=== PATIENT | female | born 1985 | race Caucasian/White ===

== ENCOUNTER 2022-09-13 03:14 | Emergency (ER) | payer OTHER, SELFPAY ==
[2022-09-13 03:17] VITALS: BP 124/78; PULSE 72; RESP 20; TEMP 36.8; O2SAT 98
[2022-09-13 03:28] VITALS: BP 130/85; PULSE 73; RESP 18; O2SAT 97; O2SAT 98
[2022-09-13] MEDS: TETANUS,DIPHTHERIA,AC PERTUSSIS ADULT (0.5 ML) BOOSTRIX IM (03:58)
--- NOTE | 2022-09-13 04:11 | ED.GENADULT ---
HPI - General Adult General Chief complaint: Wound/Laceration Stated complaint: lac Time Seen by Provider: 09/13/22 03:45 History of Present Illness HPI narrative: This is a 36-year-old female presenting ED with a scratch on her leg. Yesterday she was working around the house when she scratched her leg on a lokesh nail. She would like a tetanus booster. 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 She had completed the initial 3 courses when she was a child Related Data Allergies Allergy/AdvReac Type Severity Reaction Status Date / Time No Known Allergies Allergy Verified 09/13/22 03:31 [facility] Past Medical History Medical History Melanoma Exam Narrative: APPEARANCE: No apparent distress. Head: atraumatic. EYES: EOMI, NOSE: Atraumatic NECK: Trachea midline RESPIRATORY: No increased rate of breathing CARDIOVASCULAR: RRR, ABDOMINAL: Non-distended MUSCULOSKELETAl: No obvious deformities NEURO: Alert. Moving 4/4 extremities SKIN:: Superficial scratch over the patient's calf, mild erythema but no discharge, fluctuance or evidence of infection. PSYCHIATRIC: Normal affect Course Vital Signs Vital signs: Vital Signs Temperature 98.2 F 09/13/22 03:17 Pulse Rate 72 09/13/22 03:17 Respiratory Rate 20 09/13/22 03:17 Blood Pressure 124/78 09/13/22 03:17 Pulse Oximetry 98 09/13/22 03:17 Oxygen Delivery Room Air 09/13/22 03:17 Temperature 98.2 F 09/13/22 03:17 Pulse Rate 73 09/13/22 03:28 Respiratory Rate 18 09/13/22 03:28 Blood Pressure 130/85 09/13/22 03:28 Pulse Oximetry 97 09/13/22 03:28 Oxygen Delivery Room Air 09/13/22 03:28 Medical Decision Making MDM Narrative Medical decision making narrative: -Presentation: 36-year-old female presenting with a scratch on her leg. She is requesting a tetanus shot. 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 She will be given a prescription for Keflex. If she feels that she is developing an infection she should fill prescription and start taking medication. Patient is comfortable this plan. -RX Keflex 500 mg b.i.d. x7 days Vital Signs Vital Signs: Vital Signs Temperature 98.2 F 09/13/22 03:17 Pulse Rate 72 09/13/22 03:17 Respiratory Rate 20 09/13/22 03:17 Blood Pressure 124/78 09/13/22 03:17 Pulse Oximetry 98 09/13/22 03:17 Oxygen Delivery Room Air 09/13/22 03:17 Temperature 98.2 F 09/13/22 03:17 Pulse Rate 73 09/13/22 03:28 Respiratory Rate 18 09/13/22 03:28 Blood Pressure 130/85 09/13/22 03:28 Pulse Oximetry 97 09/13/22 03:28 Oxygen Delivery Room Air 09/13/22 03:28 Discharge Plan Discharge Clinical Impression: Abrasion Patient Disposition: Home, Self-Care Condition: Stable Instructions: Antibiotic Form, Abrasion (ED) Additional Instructions: if you believe you are developing signs of infection please complete a course of Keflex and follow-up with the primary care physician. Prescriptions: New cephalexin 500 mg capsule 500 mg PO Q12H Qty: 14 0RF Follow-up/Referrals: PHYSICIAN,RIDES ATTENDANT [Primary Care Provider] -
[2022-09-13 04:24] VITALS: BP 124/92; PULSE 72; RESP 18; O2SAT 100
== END 2022-09-13 04:26 | disposition home or self-care (01) ==
PROVIDERS: Emergency Provider Emergency Medicine
DX: S80.812A Abrasion, left lower leg, initial encounter (principal); Z23 Encounter for immunization; W45.0XXA Nail entering through skin, initial encounter
CPT/HCPCS: 90471; 90715; 99283

== ENCOUNTER 2022-11-06 16:12 | Emergency (ER) | payer OTHER, SELFPAY ==
[2022-11-06] VITALS (17 sets, daily range): BP systolic 129–134; BP diastolic 83–97; PULSE 69–88; RESP 10–25; TEMP 36.8; O2SAT 99–100
--- NOTE | 2022-11-06 16:17 | ECG_ITS ---
Measurements Intervals [place] Rate: 74 P: 13 VT: 135 QRS: 68 QRSD: 86 T: 48 QT: 367 QTc: 408 Interpretive Statements SINUS RHYTHM NO PREVIOUS ECG AVAILABLE FOR COMPARISON Electronically Signed On 11-07-2022 13:06:27 CDT by Subhash Back M.D.
--- NOTE | 2022-11-06 16:29 | PC.NURSE ---
Pt states while taking a nap today around 0800 was awoken by her heart pounding fast. States she went and had IV rehydration and states she started to feel better. States she took another nap and was awoken by her heart again pounding around 1400. States she felt dizzy and lightheaded. States she did have flank pain earlier on the left side but has since resolved. States she has only 1 void today and it was shortly after the IV rehydration and has not had any output since.
--- NOTE | 2022-11-06 16:45 | ED.ARRPALP ---
HPI - Arrhythmia/Palpitations General Chief Complaint: Arrhythmia/Palpitations Stated Complaint: lightheaded, heart palp Time Seen by Provider: 11/06/22 16:24 History of Present Illness HPI narrative: 29-year-old female presents to the emergency department for evaluation of intermittent heart palpitations. Patient states this is happened multiple times recently. Patient states that she had this happen on Sunday night and it lasted a few hours, it happened while she was sleeping and it woke her up. Patient states it happened again today and patient presented to the infusion center to get some IV fluids. Patient states that she has not drank very much fluid since then and has only urinated a small amount. Patient denies any associated chest pain or shortness of breath but does feel anxious being here in the emergency department. Patient denies any prior history of diagnosed cardiac arrhythmias but states her mother does have history of A-fib. Patient states her heart rate felt fast but she did not feel that it was irregular. Patient states she does drink alcohol daily. Related Data Allergies Allergy/AdvReac Type Severity Reaction Status Date / Time No Known Allergies Allergy Verified 11/06/22 16:26 Review of Systems Review of Systems: All systems reviewed & are unremarkable except as noted in HPI and below PMFSH Past Medical History Medical History Melanoma Exam Narrative: APPEARANCE: Well appearing, no pain, no distress, well-nourished. HEAD: normocephalic, atraumatic. EYES: PERRLA/EOMI, conjunctivae clear. NOSE: Normal no drainage EARS:TMS clear with good light reflex. THROAT: Pharynx clear, no exudate. NECK: Supple. No adenopathy, no masses. RESPIRATORY: Airway patent, respirations nonlabored. Clear to auscultation bilaterally, no rales, rhonchi, wheezing. CARDIOVASCULAR: Regular rate and rhythm without murmurs rubs or gallops. ABDOMINAL: Soft, nontender, nondistended, normal bowel sounds MUSCULOSKELETAL: Moves all extremities. Strength/ROM intact, No edema, No calf tenderness. NEURO: Alert. Cranial nerves II through XII intact. Grossly intact SKIN: Warm, dry. Normal Color Course Course Emergency Course: 37-year-old female presenting to the emergency department for evaluation of rapid heart rate. Patient's EKG was normal sinus rhythm with no evidence of ischemia. Baseline labs are being checked to evaluate for thyroid and electrolyte abnormalities. Patient is also being treated with a liter of normal saline. All questions concerns were addressed. 6:17 PM patient has been in normal sinus rhythm in the ED. At time of discharge patient's heart rate is in the 70s. Patient afebrile with no leukocytosis. Patient had normal CMP and a normal TSH and mag. Patient was encouraged to decrease her alcohol consumption and was also encouraged to follow-up with her primary care physician to be fitted for a Holter monitor. All questions concerns were addressed and patient was well-appearing at time of discharge. Vital Signs Vital signs: Vital Signs Temperature 98.2 F 11/06/22 16:14 Pulse Rate 85 11/06/22 16:14 Respiratory Rate 16 11/06/22 16:14 Blood Pressure 129/86 11/06/22 16:14 Pulse Oximetry 100 11/06/22 16:14 Oxygen Delivery Room Air 11/06/22 16:14 Temperature 98.2 F 11/06/22 16:14 Pulse Rate 70 11/06/22 18:46 Respiratory Rate 16 11/06/22 18:46 Blood Pressure 131/89 11/06/22 18:46 Pulse Oximetry 99 11/06/22 16:46 Oxygen Delivery Room Air 11/06/22 16:14 MDM - Arrhythmia/Palpitations Differential Diagnosis Differential diagnosis: Likely palpitations, anxiety, sinus tachycardia, artial fibrillation, artial flutter, supraventricular tachycardia and ventricular tachycardia Lab Data Attestation: I reviewed the patient's lab results. 11/06/22 17:03 11/06/22 17:03 Labs: Lab Results
[2022-11-06] MEDS: SODIUM CHLORIDE 0.9% IV 1,000 ML 999 ML IV CONT (17:04)
[2022-11-06 17:12] LABS: Basophils Absolute Auto 0.1 K/mm3 (0.0-0.1); Basophils Percent Auto 0.6 % (0.2-1.2); Eosinophils Percent Auto 0.5 % (0-4.4); Hematocrit 40.4 % (37.0-47.0); Hemoglobin 13.5 g/dL (12.0-15.0); Immature Granulocyte Absolute 0.03 K/mm3 (0.00-0.031); Immature Granulocyte Percent A 0.3 % (0-0.5); Lymphocytes Percent Auto 17.4 % (18.3-44.2); Mean Corpuscular HGB Conc 33.4 g/dl (32-36); Mean Corpuscular Hemoglobin 29.8 pg (26-34); Mean Corpuscular Volume 89.2 fl (80-100); Mean Platelet Volume 8.9 fl (7.4-10.4); Monocytes Absolute Auto 0.6 K/mm3 (0.1-0.6); Monocytes Percent Auto 6.7 % (2.6-8.5); Neutrophils Absolute Auto 6.4 K/mm3 (1.3-6.7); Neutrophils Percent Auto 74.5 % (45.5-73.1); Platelet Count Result 335 k/mm3 (150-375); Red Blood Count 4.53 M/mm3 (4.2-5.4); Red Cell Distribution Width 12.3 % (11.5-14.5); White Blood Count 8.6 K/mm3 (4.5-10.0)
[2022-11-06 17:22] LABS: Alanine Aminotransferase 20 U/L (6-35); Albumin Level 4.2 g/dL (3.5-5.1); Alkaline Phosphatase 73 U/L (38-126); Anion Gap 8 mmol/L (8-16); Aspartate Amino Transferase 26 U/L (14-36); Bilirubin,Total 0.3 mg/dL (0.2-1.3); Blood Urea Nitrogen 12 mg/dL (7-17); Calcium 8.8 mg/dL (8.4-10.2); Carbon Dioxide 28 mmol/L (22-30); Chloride 102 mmol/L (98-107); Estimated CRCL calculation 91 ml/min; Estimated Glomerular Filt Rate > 60; Glucose 97 mg/dL (65-110); Magnesium 1.9 mg/dL (1.6-2.3); Potassium 3.8 mmol/L (3.4-5.0); Sodium 138 mmol/L (137-145)
[2022-11-06 18:13] LABS: Thyroid Stimulating Hormone Reflex 0.974 uIU/mL (0.465-4.68)
== END 2022-11-06 19:25 | disposition home or self-care (01) ==
PROVIDERS: Emergency Provider Emergency Medicine; PCP Family Medicine
DX: I49.9 Cardiac arrhythmia, unspecified (principal)
CPT/HCPCS: 36415; 80053; 83735; 84443; 85025; 93005; 96360; 99283; J7030

== ENCOUNTER 2023-05-01 09:06 | Emergency (ER) | payer OTHER, SELFPAY ==
[2023-05-01] VITALS (13 sets, daily range): BP systolic 119–131; BP diastolic 69–86; PULSE 78–107; RESP 15–23; TEMP 36.5; O2SAT 97–100
--- NOTE | ~2023-05-01 | XR_ITS ---
EXAMINATION: XR chest 2V DATE: 05/01/2023 09:54 INDICATION: Chest pain TECHNIQUE: PA and lateral views of the chest are obtained. COMPARISON: None available FINDINGS: The lungs are free of acute opacities. No pleural effusion or pneumothorax. The cardiomedia stinal silhouette is normal. The visualized bones and soft tissues are unremarkable. Bilateral breast implants are noted. IMPRESSION: 1. No acute cardiopulmonary abnormality. Reviewed, dictated and finalized at location L. RT[employer] SALES MANAGER
--- NOTE | 2023-05-01 09:09 | ECG_ITS ---
Measurements Intervals [place] Rate: 96 P: 43 [place]: 120 QRS: 80 QRSD: 76 T: 47 QT: 348 QTc: 442 Interpretive Statements SINUS RHYTHM COMPARED TO ECG 11/06/2022 16:20:52 NO SIGNIFICANT CHANGES Electronically Signed On 05-01-2023 13:54:08 [employer]ID[employer]/STRUCTURE INSPECTION TEAM LEADER by Subhash Back M.D.
[2023-05-01 09:35] LABS: Basophils Percent Auto 0.4 % (0.2-1.2); Eosinophils Percent Auto 0.4 % (0-4.4); Hematocrit 45.3 % (37.0-47.0); Hemoglobin 14.8 g/dL (12.0-15.0); Immature Granulocyte Absolute 0.02 K/mm3 (0.00-0.031); Immature Granulocyte Percent A 0.3 % (0-0.5); Lymphocytes Absolute Auto 1.24 K/mm3 (0.9-3.2); Lymphocytes Percent Auto 15.7 % (18.3-44.2); Mean Corpuscular HGB Conc 32.7 g/dl (32-36); Mean Corpuscular Hemoglobin 29.6 pg (26-34); Mean Corpuscular Volume 90.6 fl (80-100); Mean Platelet Volume 9.2 fl (7.4-10.4); Monocytes Absolute Auto 0.5 K/mm3 (0.1-0.6); Monocytes Percent Auto 6.3 % (2.6-8.5); Neutrophils Absolute Auto 6.1 K/mm3 (1.3-6.7); Neutrophils Percent Auto 76.9 % (45.5-73.1); Platelet Count Result 323 k/mm3 (150-375); Red Cell Distribution Width 13.5 % (11.5-14.5); White Blood Count 7.9 K/mm3 (4.5-10.0)
[2023-05-01 09:42] LABS: Alanine Aminotransferase 60 U/L (6-35); Albumin Level 4.9 g/dL (3.5-5.1); Alkaline Phosphatase 105 U/L (38-126); Anion Gap 12 mmol/L (8-16); Aspartate Amino Transferase 62 U/L (14-36); Blood Urea Nitrogen 7 mg/dL (7-17); Calcium 9.9 mg/dL (8.4-10.2); Carbon Dioxide 25 mmol/L (22-30); Chloride 99 mmol/L (98-107); Estimated CRCL calculation 91 ml/min; Estimated Glomerular Filt Rate > 60; Glucose 101 mg/dL (65-110); Lipase 48 U/L (23-300); Potassium 3.9 mmol/L (3.4-5.0); Sodium 136 mmol/L (137-145)
[2023-05-01 09:45] LABS: Partial Thromboplastin Time 27.9 SECONDS (22.3-36.8)
[2023-05-01 09:53] LABS: Troponin I < 0.012 ng/mL (0.000-0.034)
[2023-05-01] MEDS: ASPIRIN 81 MG CHEWABLE TABLET 324 MG PO (10:16)
--- NOTE | 2023-05-01 10:27 | ED.CHESTPAIN ---
HPI - Chest Pain General Chief Complaint: Chest Pain Stated Complaint: heart palpitations Time Seen by Provider: 05/01/23 09:44 Source: patient Limitations: no limitations History of Present Illness HPI narrative: Patient is a 37-year-old female presents to the emergency department complaining of palpitations and chest pressure. Patient states around 3:00 a.m. she is resting in bed when she noticed palpitations and pressure in the middle of her chest which is since been improving and is practically resolved at this time she is feeling well the patient is to history is past over the past couple months she has been seen a couple times for the same thing without any formal diagnosis. Patient denies cough, fever, recent injuries, abdominal pain, nausea, vomiting, diaphoresis, urinary discomfort, bloody bowel movements, diarrhea, numbness, weakness. Patient notes that she does not have her menstrual cycle anymore as she has an implanted control in her arm. Patient admits to a recent upper respiratory illness over the past couple weeks it has been going away. the pressure was nonradiating, was constant but has since resolved and has not noticed anything that made a pressure better or worse. Patient denies any history of blood clots, denies unilateral lower extremity swelling. Patient admits to history of alcohol abuse in which she drinks vodka daily and denies any history of alcohol withdrawal, refuses to quantify the amount, is interested and abstaining from alcohol and obtaining resources. Related Data Allergies Allergy/AdvReac Type Severity Reaction Status Date / Time No Known Allergies Allergy Verified 11/06/22 16:26 Review of Systems Review of Systems: A 10 system review of systems was completed on the patient and is negative except for what is stated in the HPI. Nursing and ancillary documentation was reviewed. [facility] Past Medical History Medical History Melanoma Comments At time of signature, I have reviewed and agree with nursing past medical, surgical, social and family history unless otherwise noted. Please see the nursing chart for further information. There is no relevant family history pertinent to the presenting complaint. Exam Narrative: CONST: No acute distress. Well nourished. HENMT: Head is normocephalic and atraumatic. Moist mucous membranes. No posterior oropharynx erythema. EYES: No conjunctival icterus, injection, or pallor. PERRL. NECK: No meningeal signs. No palpable thyromegaly or thyroid tenderness palpation. RESP: Able to speak in full sentences. Normal respiratory effort. CTAB. CARDIO: Regular rate. Regular rhythm. 2+ DP and radial pulses bilaterally. GI: Nondistended. No tenderness to palpation. Soft. : No CVA tenderness to palpation. SKIN: No rashes or lesions noted on exposed skin. NEURO: Oriented x3. Moves all extremities. EXTREM/MSK/BACK: No pedal edema. PSYCH: Normal affect. Course Vital Signs Vital signs: Vital Signs Temperature 97.7 F 05/01/23 09:32 Pulse Rate 107 H 05/01/23 09:32 Respiratory Rate 18 05/01/23 09:32 Blood Pressure 128/69 05/01/23 09:32 Pulse Oximetry 99 05/01/23 09:32 Oxygen Delivery Room Air 05/01/23 09:32 Temperature 97.7 F 05/01/23 09:32 Pulse Rate 101 H 05/01/23 10:15 Respiratory Rate 23 H 05/01/23 10:15 Blood Pressure 119/83 05/01/23 10:01 Pulse Oximetry 99 05/01/23 10:15 Oxygen Delivery Room Air 05/01/23 09:32 MDM - Chest Pain MDM Narrative Medical decision making narrative: Patient presents with the above complaint. Initial vitals are remarkable for Mild tachycardia and otherwise no significant abnormalities. Physical examination as noted above. Plan discussed: laboratory analysis, EKG, chest x-ray, IV fluids, aspirin 324 mg p.o. Patient is interested in abstaining from alcohol and discussed plan to prescribe Librium and th
[2023-05-01] MEDS: SODIUM CHLORIDE 0.9% IV 500 ML 999 ML IV CONT (10:40)
[2023-05-01 10:58] LABS: Magnesium 1.5 mg/dL (1.6-2.3)
[2023-05-01 11:25] LABS: D Dimer 0.43 ug/mL (<0.48)
[2023-05-01 11:29] LABS: Thyroid Stimulating Hormone Reflex 0.669 uIU/mL (0.465-4.68)
[2023-05-01] MEDS: FOLIC ACID 1 MG TABLET PO (11:30)
[2023-05-01] MEDS: THIAMINE HCL 200 MG/2 ML VIAL 100 MG IV PUSH (11:30)
[2023-05-01] MEDS: MAGNESIUM SULF 2 GM/WATER 50ML 2 GM/50 ML BAG IVPB (11:30)
--- NOTE | 2023-05-01 11:47 | PC.NURSE ---
pt provided paper resources on substance use treatment options.
== END 2023-05-01 12:37 | disposition home or self-care (01) ==
PROVIDERS: Emergency Provider Student in an Organized Health Care Education/Training Program; PCP Family Medicine
DX: R07.9 Chest pain, unspecified (principal); F10.10 Alcohol abuse, uncomplicated; R00.2 Palpitations; E83.42 Hypomagnesemia
CPT/HCPCS: 36415; 71046; 80053; 83690; 83735; 84443; 84484; 85025; 85380; 85610; 85730; 93005; 96361; 96365; 96375; 99284; A9270; J3411; J3475; J7040

== ENCOUNTER 2023-05-04 16:23 | Emergency (ER) | payer OTHER, SELFPAY ==
[2023-05-04 16:43] VITALS: BP 110/75; PULSE 111; RESP 16; TEMP 36.6; O2SAT 100
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
== END 2023-05-04 17:00 | disposition home or self-care (01) ==
PROVIDERS: Emergency Provider Nurse Practitioner; PCP Family Medicine
DX: S91.312A Laceration without foreign body, left foot, initial encounter (principal); Z79.899 Other long term (current) drug therapy; W25.XXXA Contact with sharp glass, initial encounter; Y92.002 Bathroom of unspecified non-institutional (private) residence as the place of occurrence of the external cause
CPT/HCPCS: 99213; G0463

== ENCOUNTER 2023-10-02 04:28 | Emergency (ER) | payer OTHER, SELFPAY ==
[2023-10-02 04:40] VITALS: BP 134/88; PULSE 103; RESP 18; TEMP 37.1; O2SAT 99
--- NOTE | 2023-10-02 04:44 | ECG_ITS ---
SEE SCANNED COPY FOR CONFIRMED REPORT MTDD
[2023-10-02] MEDS: SODIUM CHLORIDE 0.9% IV 1,000 ML 999 ML IV CONT ×2 (04:56→06:00)
[2023-10-02 04:58] LABS: Basophils Absolute Auto 0.1 K/mm3 (0.0-0.1); Basophils Percent Auto 0.7 % (0.2-1.2); Eosinophils Absolute Auto 0.1 K/mm3 (0-0.3); Eosinophils Percent Auto 1.1 % (0-4.4); Hematocrit 40.8 % (37.0-47.0); Hemoglobin 13.4 g/dL (12.0-15.0); Immature Granulocyte Absolute 0.02 K/mm3 (0.00-0.031); Immature Granulocyte Percent A 0.3 % (0-0.5); Lymphocytes Percent Auto 33.5 % (18.3-44.2); Mean Corpuscular HGB Conc 32.8 g/dl (32-36); Mean Corpuscular Hemoglobin 29.2 pg (26-34); Mean Corpuscular Volume 88.9 fl (80-100); Mean Platelet Volume 9.3 fl (7.4-10.4); Monocytes Absolute Auto 0.6 K/mm3 (0.1-0.6); Monocytes Percent Auto 8.2 % (2.6-8.5); Neutrophils Absolute Auto 4.2 K/mm3 (1.3-6.7); Neutrophils Percent Auto 56.2 % (45.5-73.1); Platelet Count Result 305 k/mm3 (150-375); Red Blood Count 4.59 M/mm3 (4.2-5.4); Red Cell Distribution Width 13.2 % (11.5-14.5); White Blood Count 7.5 K/mm3 (4.5-10.0)
[2023-10-02 05:09] LABS: Alanine Aminotransferase 25 U/L (6-35); Albumin Level 4.7 g/dL (3.5-5.1); Alkaline Phosphatase 88 U/L (38-126); Anion Gap 11 mmol/L (4-12); Aspartate Amino Transferase 33 U/L (14-36); Bilirubin,Total 0.5 mg/dL (0.2-1.3); Blood Urea Nitrogen 15 mg/dL (7-17); Calcium 8.8 mg/dL (8.4-10.2); Carbon Dioxide 24 mmol/L (22-30); Chloride 103 mmol/L (98-107); Estimated CRCL calculation 80 ml/min; Estimated Glomerular Filt Rate > 60; Glucose 169 mg/dL (65-110); Potassium 3.2 mmol/L (3.4-5.0); Sodium 138 mmol/L (137-145)
[2023-10-02] MEDS: POTASSIUM CHLORIDE 20 MEQ ER TABLET 40 MEQ PO (05:26)
[2023-10-02 05:27] LABS: SPREG INTERNAL CONTROL Positive; Serum Qual hCG Negative
[2023-10-02 05:38] LABS: Influenza A QL RT-PCR Negative (Negative); Influenza B QL RT-PCR Negative (Negative); RSV RNA, RT-PCR Negative (Negative); SARS-CoV-2 RNA PCR Negative (Negative)
[2023-10-02 05:50] VITALS: BP 136/95; PULSE 99; RESP 17; O2SAT 100
--- NOTE | 2023-10-02 05:55 | ED.DIZZY ---
HPI - Dizziness General Chief Complaint: Dizziness Stated Complaint: dizzy, palpitations, abdominal pain, nausea Time Seen by Provider: 10/02/23 04:38 History of Present Illness HPI Narrative: Patient is a 38-year-old female who presents to the emergency department this morning complaining of lightheadedness and palpitations and shakiness. Patient admits that she has history of palpitations on and off and has been seen at our facility in the past multiple times for this. Patient was instructed to follow-up with her primary care physician or food equipment service technician to have a Holter monitor, however, patient has not followed up. Patient also admits that she has not been drinking as much water as she should and believes that this could be contributing to her symptoms. She also admits that she spent the entire day yesterday out in the sun. She is chest, any abdominal pain, fevers or chills. No additional symptoms or concerns at this time. Related Data Home Medications Medication Instructions Recorded Confirmed chlordiazepoxide HCl 25 mg capsule mg 05/04/23 etonogestrel 68 mg subdermal 1 implant subdermal ONCE 05/04/23 05/04/23 implant (Nexplanon) phentermine 37.5 mg tablet mg 05/04/23 05/04/23 Allergies Allergy/AdvReac Type Severity Reaction Status Date / Time No Known Allergies Allergy Verified 10/02/23 04:44 Review of Systems Review of Systems: All systems are reviewed and are negative unless stated otherwise in the HPI. [facility] Past Medical History Medical History Melanoma Exam Narrative: General: Alert, awake, afebrile, anxious. HEENT: PERRL, no rhinorrhea, no post nasal drip, oropharynx clear. Cardiovascular: Tachycardic with regular rhythm, no murmurs, rubs or gallops, no peripheral edema. Respiratory: Clear to auscultation bilaterally, no tachypnea, no wheezing, no rhonchi, no rubs, no respiratory distress. Abdomen: Soft, nontender, nondistended, no rebound, no guarding, no peritoneal signs. Musculoskeletal: No joint swelling or deformity, normal muscle tone. Skin: No rashes or petechia, no signs of infection. Psychiatric: Alert and oriented, normal behavior and judgment for situation. Neurological: Alert and oriented to person, place, and time. Follows all commands. No focal deficits, speech is clear and fluent. Course Vital Signs Vital signs: Vital Signs Temperature 98.7 F 10/02/23 04:40 Pulse Rate 103 H 10/02/23 04:40 Respiratory Rate 18 10/02/23 04:40 Blood Pressure 134/88 10/02/23 04:40 Pulse Oximetry 99 10/02/23 04:40 Oxygen Delivery Room Air 10/02/23 04:40 Temperature 98.7 F 10/02/23 04:40 Pulse Rate 99 10/02/23 05:50 Respiratory Rate 17 10/02/23 05:50 Blood Pressure 136/95 H 10/02/23 05:50 Pulse Oximetry 100 10/02/23 05:50 Oxygen Delivery Room Air 10/02/23 04:40 MDM - Dizziness MDM Narrative Medical decision making narrative: The patient was evaluated by myself in the emergency department. History is obtained from patient who is an independent historian and physical exam was performed. External medical records were reviewed at this time. IV was established and pertinent tests were ordered. Patient was administered 2 L IV fluid bolus with normal saline. EKG was obtained which revealed sinus rhythm rate of 105 beats per minute. No ST changes, T wave inversions or evidence of acute ischemia. EKG was independently interpreted by me and is currently pending official cardiology read. Laboratory results obtained revealing potassium level of 3.2, otherwise unremarkable. Patient was administered 4 mg of oral potassium at this time. Magnesium level obtained and noted to be within normal limits. Differential diagnosis considerations include dehydration, acute anxiety reaction, palpitations, electrolyte derangements and arrhythmia. Comorbidities impacting this visit include history of palpita
[2023-10-02 06:08] LABS: Magnesium 1.8 mg/dL (1.6-2.3)
== END 2023-10-02 06:56 | disposition home or self-care (01) ==
PROVIDERS: Emergency Provider Emergency Medicine
DX: R00.2 Palpitations (principal); E87.6 Hypokalemia; Z85.820 Personal history of malignant melanoma of skin; Z20.822 Contact with and (suspected) exposure to COVID-19
CPT/HCPCS: 36415; 80053; 83735; 84703; 85025; 87637; 93005; 96360; 96361; 99284; A9270; J7030

== ENCOUNTER 2025-02-04 09:47 | Emergency (ER) | payer OTHER, SELFPAY ==
--- NOTE | ~2025-02-04 | CT_ITS ---
EXAMINATION: CT abdomen pelvis w con DATE: 02/04/2025 12:30 INDICATION: Abdominal pain. TECHNIQUE: Computed tomography (CT) of the abdomen and pelvis was performed with 100 mL Omnipaque 350 intravenous contrast. Automated exposure control and iterative reconstruction technique were employed. The dose-length product was 342.13 mGy-cm. COMPARISON: None. FINDINGS: The visualized portions of the lung bases are clear without pneumonia or pleural effusion. The heart size is normal. No pericardial effusion. There are bilateral breast implants. There is diffuse hepatic steatosis. The gallbladder, spleen, pancreas, adrenal glands, and kidneys are normal. There are no dilated loops of bowel. The appendix is normal. There are no pathologically enlarged lymph nodes. There is no free intraperitoneal fluid. There is mild thoracic and lumbar spondylosis. IMPRESSION: 1. Diffuse hepatic steatosis. Reviewed, dictated and finalized at location E.
[2025-02-04 09:49] VITALS: BP 134/89; PULSE 96; RESP 17; TEMP 36.4; O2SAT 99
[2025-02-04 10:24] LABS: Add Urine Microscopic? YES; Appearance Urine Cloudy (Clear); Glucose Urine UA Negative (Negative); Leukocyte Esterase Ur 3+ LEU/UL (Negative); Nitrate Urine Negative (Negative); Specific Grav Ur 1.006 (1.001-1.035)
--- OUTSIDE RECORDS SUMMARY | 2025-02-04 10:35 | XMS_ITS | Encounter Summary ---
Author Organization [facility] Address [address] [place] [address] Care Team Providers Care Chief Supply Chain Officer Name Role Phone Chris Condon Primary Care Provider Unavailabl e Encounter Details Date Type Department Care Team (Late st Contact Info) Description 03/22/2018 Lab Requisition [facility] [address] [facility] [place] [id number] Marybel Hankins MD [address] [facility] [address] [place] [address] Social History Tobacco Use Types Packs/Day Years Used Date Smoking Tobacco: Never Assessed Comments Unknown Sex and Gender Information Value Date Recorded Sex Assigned at Not on file Legal Sex Female 6:28 AM NEWS COPY EDITOR Gender Identity Not on file Sexual Orientation Not on file documented as of this encounter Plan of Treatment Not on file documented as of this encounter Procedures Procedure Name Priority Date/Time Associated Diagnosis Comments DERMATOPATH TECHNICAL REPORT Routine 03/20/2018 12:00 AM NEWS COPY EDITOR documented in this encounter Results * DERMATOPATH TECHNICAL REPORT (03/20/2018 12:00 AM NEWS COPY EDITOR) Case Report Dermatopathology Report Case: [id number] Authorizing Provider: Marybel Hankins MD Collected: 03/20/2018 12:00 AM Pathologist: Chantel Harvey MD Received: 03/22/2018 06:42 AM Specimen: Skin, right ant salguero 8 6:17 PM NEWS COPY EDITOR DERMATOPATHOLOGY LABORATORY Clinical History BCC. Non-healing. Check margins. 8 6:17 PM [facility] DERMATOPATHOLOGY LABORATORY Gross Description Specimen A: Received is one formalin filled container labeled with the patient's name and designated right ant salguero. The specimen consists of a shave measuring [id number]. The margin is inked green. Jar 0. [facility] Dermatopathology Laboratory performed the technical component only. 6:17 PM [facility] DERMATOPATHOLOGY LABORATORY Embedded Images 6:17 PM [facility] DERMATOPATHOLOGY LABORATORY DISCLAIMER An external and internal positive and negative controls are appropriate for the histochemical, immunohistochemical and immunofluorescence stain(s) in this case (if any), except where stated explicitly. The performance characteristics of the stain(s) cited in this report were developed and its performance characteristic determined by the Dermatopathology Laboratory at [facility]. These tests need not be, and therefore are not, approved by the [place] Food and Drug Administration. The tests are used for clinical purposes. 6:17 PM [facility] DERMATOPATHOLOGY LABORATORY at [address] [facility] Pathology/Cytolog y TISSUE SPECIMEN FROM SKIN / Unknown 03/20/2018 03/22/2018 6:42 AM NEWS COPY EDITOR Marybel Hankins MD LAB - PATHOLOGY/CYTOLOGY OR DERABLES Final Result DERMATOPATHOLOGY LABORATORY [facility] Department of Dermatology [address] [place] [address] 5th Floor Lab [address] [phone] documented in this encounter Visit Diagnoses Not on filedocumented in this encounter Additional Health Concerns Infection Onset Date Last Indicated Resolved Time COVID-19 Under Investigation 12/05/2021 12/05/2021 12/05/2021 8:39 PM CDT COVID-19 Confirmed 12/05/2021 12/05/2021 4:33 AM CDT documented as of this encounter Care Teams Chief Supply Chain Officer Relationship Specialty Start Date End Date Chris Condon Update Information PCP - General 03/20/18 documented as of this encounter
--- OUTSIDE RECORDS SUMMARY | 2025-02-04 10:35 | XMS_ITS | Clinical Summary ---
Author Organization [facility] Health Address [address] [place] [address] Care Team Providers Care Scenario Writer Name Role Phone Chris Condon Primary Care Provider Unavailabl e Source Comments [facility],non-owned Affiliates and Associated Physician Practices is amultiple site organization consisting of ambulatory clinics and hospital sitesin [place], [place], [place] and [place]. This disclosure is being madepursuant to the Care Everywhere program and may not contain all information available regarding this patient. 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 TEACHER Gender Identity Not on file Sexual Orientation Not on file Last Filed Vital Signs Vital Sign Reading Time Taken Comments Blood Pressure 135/79 05/21/2017 1:04 PM COMPOSITION TEACHER Pulse 90 05/21/2017 1:04 PM COMPOSITION TEACHER Temperature 36.4 C (97.6 F) 11/06/2016 1:10 PM CDT Respiratory Rate 16 03/02/2015 10:35 AM CDT Oxygen Saturation 100% 11/06/2016 1:10 PM CDT Inhaled Oxygen Concentration - - Weight 68 kg (150 lb) 05/21/2017 1:04 PM COMPOSITION TEACHER Height 170.2 cm (5' 7) 05/21/2017 1:04 PM COMPOSITION TEACHER Body Mass Index 23.49 05/21/2017 1:04 PM COMPOSITION TEACHER Plan of Treatment Health Maintenance Due Date Last Done Comments MAMMOGRAM 1984 HIV SCREENING 09/24/1999 HEPATITIS C SCREENING 09/19/2002 DTAP/TDAP/TD VACCINES (1 - Tdap) 09/24/2003 HEPATITIS B VACCINE (1 of 3 - 19+ 3-dose series) 09/24/2003 PAP SMEAR 2005 HPV VACCINE (1 - 3-dose SCDM series) 09/24/2011 DEPRESSION SCREENING 05/14/2024 COVID-19 VACCINE (3 - 2024-2 6 season) 2025 07/19/2020, 06/28/2020 INFLUENZA VACCINE (#1) 2025 4, 06/02/2013 LIPID TESTING 06/23/2027 06/23/2022 ZOSTER VACCINE (1 of 2) 2034 HIB VACCINE Aged Out No longer eligi ble based on patient's age to complete this topic MENINGOCOCCAL (Group B) VACCINE SHARED DECISION-MAKING Aged Out No longer eligible based on patient's age to complete this topic MENINGOCOCCAL GROUPS A/C/Y/W VACCINE Aged Out No longer eligible b ased on patient's age to complete this topic PNEUMOCOCCAL VACCINE Aged Out No long er eligible based on patient's age to complete this topic Care Teams Scenario Writer Relationship Specialty Start Date End Date Chris Condon Update Information PCP - General 03/20/18
--- OUTSIDE RECORDS SUMMARY | 2025-02-04 10:35 | XMS_ITS | Encounter Summary ---
Author Organization [facility] Address [address] [place] [address] Care Team Providers Care Sales Representative Marine Supplies Name Role Phone Chris Condon Primary Care Provider Unavailabl e Encounter Details Date Type Department Care Team (Late st Contact Info) Description 12/05/2021 Lab Requisition [facility] [address] [place] [phone] Miky Fernandes, [facility] [address] [address] Contact with and (suspected) exposure to other viral communicable diseases Social History Tobacco Use Types Packs/Day Years Used Date Smoking Tobacco: Never Assessed Comments Unknown Sex and Gender Information Value Date Recorded Sex Assigned at Not on file Legal Sex Female 6:28 AM SYSTEM SUPPORT SPECIALIST Gender Identity Not on file Sexual Orientation Not on file documented as of this encounter Plan of Treatment Not on file documented as of this encounter Procedures Procedure Name Priority Date/Time Associated Diagnosis Comments SARS-COV-2 (COVID-19) IN HOUSE Routine 12/05/2021 10:15 AM CDT Contact with and (suspected) exposure to other viral communicable diseases documented in this encounter Results * (ABNORMAL) SARS-COV-2 (COVID-19) INTERNAL (12/05/2021 10:15 AM CDT) COVID-19 PCR Detected( A) Not detected 12/05/2021 8:39 PM CDT [facility] Microbiology SPECIMEN FROM NASOPHARYNGEAL STRUCTURE / Unknown Collection / Unknown 12/05/2021 10:15 AM CDT 12/05/2021 1:42 PM CDT Narrative [facility] - 12/05/2021 8:39 PM CDT This nucleic acid amplification assay performance was validated by [facility]. This test has been authorized by the Food and Drug administration (FDA)under an Emergency Use Authorization (EUA). This test has been validated in accordance with the FDA's guidance document Policy for Diagnostic Testing in Laboratories Certified to perform High Complexity Testing under CLIA prior to Emergency Use Authorization for Coronavirus Disease-2019 during the Public Health Emergency issued on July 12, 2019. FDA independent review of this validation is pending. This test is only authorized for the duration of time the declaration that circumstances exist justifying the authorization of emergency use of in vitro diagnostic tests for detection of SARS-CoV-2 virus and/or diagnosis of COVID-19 infection under section 564(b)(1) of the Act, 21 U.S.C 360bbb-3 (b)(1), unless the authorization is terminated or revoked sooner. Fact Sheets for this EUA assay are available upon request. Miky Fernandes [facility] ORDL[place]elle LEONARD Final Result [facility] [address] [place], [place] [address], [facility] [phone] documented in this encounter Visit Diagnoses Diagnosis Contact with and (suspected) exposure to other viral communicable diseases documented in this encounter Additional Health Concerns Infection Onset Date Last Indicated Resolved Time COVID-19 Under Investigation 12/05/2021 12/05/2021 12/05/2021 8:39 PM CDT COVID-19 Confirmed 12/05/2021 12/05/2021 4:33 AM CDT documented as of this encounter Care Teams Sales Representative Marine Supplies Relationship Specialty Start Date End Date Chris Condon Update Information PCP - General 03/20/18 documented as of this encounter
--- OUTSIDE RECORDS SUMMARY | 2025-02-04 10:35 | XMS_ITS | Clinical Summary ---
Author Organization [facility] Address [address] [place] [id number] Care Team Providers Care Assistant Auditor Name Role Phone No, Physician Primary Care Provider [phone] Allergies No known active allergies Medications No known medications Active Problems Problem Noted Date Diagnosed Date History of malignant melanoma 01/12/2016 Scar 01/12/2016 Lymphadenopathy 01/12/2016 Family History Medical History Relation Name Comments Cancer Other Family history of malignant neoplasm - Relation: Grandmother (Added by TW Conv) Relation Name Status Comments Other Social History Tobacco Use Types Packs/Day Years Used Date Smoking Tobacco: Never Personal Safety Answer Date Recorded Getting School Help Needed Not on file 05/04 Comments Unknown Sex and Gender Information Value Date Recorded Sex Assigned at Not on file Legal Sex Female 8:47 AM MISSING 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
--- NOTE | 2025-02-04 11:15 | ED.GENADULT ---
HPI - General Adult General Chief complaint: Abdominal Pain Stated complaint: inable to eat and drink r/t nausea and abd pain Time Seen by Provider: 02/04/25 10:55 History of Present Illness HPI narrative: Adam Hebert is a 39-year-old female who presents with complaints of having nausea vomiting that started 2 days ago. She states that she has some mid to right lower abdominal pain that is been pretty consistent since she started vomiting 2 days ago. She states that she last vomited yesterday around 2:00 p.m. and she has not tried to eat or drink anything today. She denies any dysuria she states her last bowel movement was about 3 days ago which is normal for her she states she has a history of irritable bowel disease constipation. She also admits that she is a heavy drinker and typically drinks about 6 shots a day 4 days a week. She does not believe she goes through withdrawals and is typically sober 3 days a week. She says she was trying to get over her hangover on Sunday and she took another shot and that is when she started vomiting and she has not felt well since. He denies any fevers or chills. Related Data Home Medications ?Medication ?Instructions ?Recorded ?Confirmed ?Last Taken ?Type chlordiazepoxide HCl 25 mg capsule mg 05/04/23 Unknown History etonogestrel 68 mg subdermal 1 implant subdermal ONCE 05/04/23 05/04/23 Unknown History implant (Nexplanon) phentermine 37.5 mg tablet mg 05/04/23 05/04/23 Unknown History Allergies Allergy/AdvReac Type Severity Reaction Status Date / Time No Known Allergies Allergy Verified 10/02/23 04:44 Review of Systems Review of Systems: All systems reviewed & are unremarkable except as noted in HPI and below PMFSH Past Medical History Medical History Melanoma Exam Narrative: GENERAL: Well-appearing, well-nourished, and in no acute distress. HEAD: Normocephalic, atraumatic. EYES: PERRLA and EOMI. ENT: Nares clear, no rhinorrhea or epistaxis. Mucous membranes moist. Oropharynx without tonsillar hypertrophy exudate or other lesions. NECK: Supple. No adenopathy or masses. No carotid bruits or JVD CHEST: Clear to auscultation. No respiratory distress. No wheezes rales or rhonchi HEART: Regular rate and rhythm. No murmur heard. Normal peripheral pulses. ABDOMEN: Soft,, nondistended, normal active bowel sounds, does not appear to have pain with palpation on exam however she states there is pain to the mid umbilical region with palpation. No CVA tenderness EXTREMITIES: Normal range of motion. No edema. SKIN: Warm, dry, no rash. NEURO: No focal deficits. Alert and oriented x3. PSYCH: Normal mood and affect. Course Vital Signs Vital signs: Vital Signs Temperature 36.4 C 02/04/25 09:49 Pulse Rate 96 02/04/25 09:49 Respiratory Rate 17 02/04/25 09:49 Blood Pressure 134/89 02/04/25 09:49 Pulse Oximetry 99 02/04/25 09:49 Oxygen Delivery Room Air 02/04/25 09:49 Temperature 36.4 C 02/04/25 09:49 Pulse Rate 96 02/04/25 09:49 Respiratory Rate 17 02/04/25 09:49 Blood Pressure 134/89 02/04/25 09:49 Pulse Oximetry 99 02/04/25 09:49 Oxygen Delivery Room Air 02/04/25 09:49 Medical Decision Making MDM Narrative Medical decision making narrative: 39-year-old female who presents with complaints of having nausea vomiting that started 2 days ago with mid to right lower abdominal pain. States last bowel movement was about 3 days ago which is normal for her denies any urinary symptoms. She states that she does get frequent urinary tract infections. There is no CVA tenderness on exam. She last vomited yesterday around 2:00 p.m. and has not tried to eat or drink anything she states that she still feels nauseated. She expresses concern that it could be related to her heavy alcohol use. She admits to drinking about 6 shots a day 4 days a week. Concern for acute appendicitis, gastroenteritis, dehydration, pancreatitis, pyelonephritis Plan to check labs and CT of abd / pelv CBC: No leukocytosis, hemodynamically stable CMP: SODIUM 138, BUN 4 OTHERWISE UNREMARKABLE UA; CLOUDY, KETONES, 3+ LEUKS, GLUCOSE GREATER THAN 100 WITH 1+ BACTERIA Urine preg is negative CT scan negative for acute findings other than diffuse hepatic steatosis Patient re-evaluated at around 13 15 and she states that she is feeling a lot better her nausea is gone I updated her on her lab results and CT findings that she does have urinary tract infection and hepatic steatosis is seen on imaging will provide her with GI to follow up with will start her on cephalexin for her urinary tract infection Patient discharged with cephalexin Zofran continue clear liquids for the next 24 hours slowly advance diet with a bland diet follow-up with primary care doctor in GI return for any new or worsening symptoms. Medical Records Medical records reviewed: Yes I reviewed the external patient's medical records. Vital Signs Vital Signs: Vital Signs Temperature 36.4 C 02/04/25 09:49 Pulse Rate 96 02/04/25 09:49 Respiratory Rate 17 02/04/25 09:49 Blood Pressure 134/89 02/04/25 09:49 Pulse Oximetry 99 02/04/25 09:49 Oxygen Delivery Room Air 02/04/25 09:49 Temperature 36.4 C 02/04/25 09:49 Pulse Rate 96 02/04/25 09:49 Respiratory Rate 17 02/04/25 09:49 Blood Pressure 134/89 02/04/25 09:49 Pulse Oximetry 99 02/04/25 09:49 Oxygen Delivery Room Air 02/04/25 09:49 VItals reviewed by mew Lab Data Lab results reviewed: Yes I reviewed the patient's lab results. 02/04/25 11:33 02/04/25 11:33 Labs: Lab Results 02/04/25 02/04/25 02/04/25 Range/Units 10:09 11:33 11:34 WBC 6.4 (4.5-10.0) K/mm3 RBC 4.79 (4.2-5.4) M/mm3 Hgb 14.0 (12.0-15.0) g/dL Hct 42.1 (37.0-47.0) % MCV 87.9 (80-100) fl MCH 29.2 (26-34) pg MCHC 33.3 (32-36) g/dl RDW 12.5 (11.5-14.5) % Plt Count 277 (150-375) k/mm3 MPV 9.1 (7.4-10.4) fl Immature Gran % (Auto) 0.2 (0-0.5) % Neut % (Auto) 67.1 (45.5-73.1) % Lymph % (Auto) 22.1 (18.3-44.2) % [place] % (Auto) 9.5 H (2.6-8.5) % Eos % (Auto) 0.5 (0-4.4) % Baso % (Auto) 0.6 (0.2-1.2) % Lymph # (Auto) 1.41 (0.9-3.2) K/mm3 [place] # (Auto) 0.6 (0.1-0.6) K/mm3 Eos # (Auto) 0.0 (0-0.3) K/mm3 Baso # (Auto) 0.0 (0.0-0.1) K/mm3 Abs Immat Gran (auto) 0.01 (0.00-0.031) K/mm3 Absolute Neuts (auto) 4.3 (1.3-6.7) K/mm3 Absolute Nucleated RBC 0.000 (0.0-0.012) K/mm3 Nucleated RBC % 0.0 (0.0-0.2) % Sodium 135 L (137-145) mmol/L Potassium 3.7 (3.4-5.0) mmol/L Chloride 98 (98-107) mmol/L Carbon Dioxide 28 (22-30) mmol/L Anion Gap 9 (4-12) mmol/L BUN 4 L D (7-17) mg/dL Creatinine 0.70 (0.7-1.0) mg/dL Estim Creat Clear Calc 90 ml/min Estimated GFR > 60 (59 - ) Glucose 98 (65-110) mg/dL Calcium 8.8 (8.4-10.2) mg/dL Total Bilirubin 1.2 (0.2-1.3) mg/dL AST 33 (14-36) U/L ALT 18 (6-35) U/L Alkaline Phosphatase 91 (38-126) U/L Total Protein 8.0 (6.3-8.2) g/dL Albumin 4.4 (3.5-5.1) g/dL Lipase 48 (23-300) U/L Urine Color Yellow (Yellow) Urine Appearance Cloudy H (Clear) Urine pH 8.0 (5.0-9.0) Ur Specific [place] 1.006 (1.001-1.035) Urine Protein Trace (Negative) mg/dL Urine Glucose (UA) Negative (Negative) mg/dL Urine Ketones 1+ H (Negative) mg/dL Ur Blood (Man) Trace (Negative) Urine Nitrate Negative (Negative) Urine Bilirubin Negative (Negative) Urine Urobilinogen 1.0 (<2.0) mg/dL Leukocyte Esterase Rfl 3+ H (Negative) LEI/UL Urine RBC 0-2 (0-2) /hpf Urine WBC >100 H (0-3) /hpf Ur Squamous Epith Cells Occasional (Few) /hpf Urine Bacteria 1+ H /hpf Urine Casts 3-5 POC Urine HCG, Qual Negative (Negative) Imaging Data Radiologist's impression: Impressions Abdomen/Pelvis CT 02/04/25 12:36 IMPRESSION: 1. Diffuse hepatic steatosis. Discharge Plan Discharge Clinical Impression: Hepatic steatosis UTI (urinary tract infection) Qualifiers: Urinary tract infection type: acute cystitis Hematuria presence: without hematuria Qualified Code(s): N30.00 - Acute cystitis without hematuria Patient Disposition: Home Condition: Stable Instructions: Antibiotic Form, Urinary Tract Infection in Women (ED), Non-Alcoholic Fatty Liver Disease (ED) Additional Instructions: Continue your antibiotics as ordered for urinary tract infection, you may continue to take the Zofran as needed for the nausea as we discussed. Stick to a clear liquid diet for the next 24 hours and slowly advance her diet to bland then regular diet as tolerated. Please follow-up your primary care doctor regarding the findings to ensure you are improving. If he should develop any new or worsening symptoms otherwise return to the emergency department. Patient Language: Georgian Prescriptions: New cephalexin 500 mg capsule 500 mg PO Q8H 5 Days Qty: 15 0RF ondansetron 4 mg tablet,disintegrating 4 mg PO Q6H PRN (Reason: nausea and vomiting) Qty: 12 0RF No Action phentermine 37.5 mg tablet Nexplanon 68 mg Implant 1 implant SUBDERMAL ONCE Rx Instructions: as a single dose chlordiazepoxide HCl 25 mg capsule cephalexin 500 mg capsule 500 mg PO Q6H 5 Days Qty: 20 0RF Follow-up/Referrals: PHYSICIAN NOT ON STAFF,NONSTAFF [Primary Care Provider] Charlie Burks MD [Physician, Gastroenterology] Time of Disposition: 13:40
[2025-02-04] MEDS: SODIUM CHLORIDE 0.9% IV 1,000 ML 999 ML IV CONT (11:34)
[2025-02-04] MEDS: ONDANSETRON INJ 4 MG/2 ML VIAL IV PUSH (11:35)
[2025-02-04 11:37] LABS: BEDSIDEPREGUCG Negative (Negative)
[2025-02-04 11:40] LABS: Hematocrit 42.1 % (37.0-47.0); Hemoglobin 14.0 g/dL (12.0-15.0); Immature Granulocyte Percent A 0.2 % (0-0.5); Lymphocytes Absolute Auto 1.41 K/mm3 (0.9-3.2); Mean Corpuscular HGB Conc 33.3 g/dl (32-36); Mean Corpuscular Hemoglobin 29.2 pg (26-34); Mean Corpuscular Volume 87.9 fl (80-100); Nucleated Red Blood Cells Absolute Auto 0.000 K/mm3 (0.0-0.012); Nucleated Red Blood Cells Perc 0.0 % (0.0-0.2); Platelet Count Result 277 k/mm3 (150-375); Red Blood Count 4.79 M/mm3 (4.2-5.4); White Blood Count 6.4 K/mm3 (4.5-10.0)
[2025-02-04 12:00] LABS: Alanine Aminotransferase 18 U/L (6-35); Albumin Level 4.4 g/dL (3.5-5.1); Alkaline Phosphatase 91 U/L (38-126); Anion Gap 9 mmol/L (4-12); Aspartate Amino Transferase 33 U/L (14-36); Bilirubin,Total 1.2 mg/dL (0.2-1.3); Blood Urea Nitrogen 4 mg/dL (7-17); Calcium 8.8 mg/dL (8.4-10.2); Carbon Dioxide 28 mmol/L (22-30); Chloride 98 mmol/L (98-107); Estimated CRCL calculation 90 ml/min; Estimated Glomerular Filt Rate > 60; Glucose 98 mg/dL (65-110); Lipase 48 U/L (23-300); Potassium 3.7 mmol/L (3.4-5.0); Sodium 135 mmol/L (137-145); Total Protein 8.0 g/dL (6.3-8.2)
--- OUTSIDE RECORDS SUMMARY | 2025-02-04 12:02 | XMS_ITS | Clinical Summary ---
Author Organization [facility] Health Address [address] [place] [address] Care Team Providers Care Oil Rig Roughneck Name Role Phone Chris Condon Primary Care Provider Unavailabl e Source Comments [facility],non-owned Affiliates and Associated Physician Practices is amultiple site organization consisting of ambulatory clinics and hospital sitesin [place], [place], [place] and [place]. This disclosure is being madepursuant to the Care Everywhere program and may not contain all information available regarding this patient. Last updated 18.[facility] [employer] Allergies No known active allergies Immunizations Immunization Administration Dates Next Due Covid Pfizer primary monoval ent 12+ yr 0.3mL Purple cap 07/19/2020,06/28/2020 Social History Tobacco Use Types Packs/Day Years Used Date Smoking Tobacco: Never Assessed Comments Unknown Sex and Gender Information Value Date Recorded Sex Assigned at Not on file Legal Sex Female 6:28 AM SUPERVISOR CORE DRILLING Gender Identity Not on file Sexual Orientation Not on file Last Filed Vital Signs Vital Sign Reading Time Taken Comments Blood Pressure 135/79 05/21/2017 1:04 PM SUPERVISOR CORE DRILLING Pulse 90 05/21/2017 1:04 PM SUPERVISOR CORE DRILLING Temperature 36.4 C (97.6 F) 11/06/2016 1:10 PM CDT Respiratory Rate 16 03/02/2015 10:35 AM CDT Oxygen Saturation 100% 11/06/2016 1:10 PM CDT Inhaled Oxygen Concentration - - Weight 68 kg (150 lb) 05/21/2017 1:04 PM SUPERVISOR CORE DRILLING Height 170.2 cm (5' 7) 05/21/2017 1:04 PM SUPERVISOR CORE DRILLING Body Mass Index 23.49 05/21/2017 1:04 PM SUPERVISOR CORE DRILLING Plan of Treatment Health Maintenance Due Date [...] age to complete this topic Care Teams Oil Rig Roughneck Relationship Specialty Start Date End Date Chris Condon Update Information PCP - General 03/20/18
--- OUTSIDE RECORDS SUMMARY | 2025-02-04 12:02 | XMS_ITS | Encounter Summary ---
Author Organization [facility] Address [address] [place] [address] Care Team Providers Care Belt Lacer Name Role Phone Chris Condon Primary Care Provider Unavailabl e Encounter Details Date Type Department Care Team (Late st Contact Info) Description 03/22/2018 Lab Requisition [facility] [address] [facility] [place] [id number] Marybel Hankins MD [address] [facility] [address] [place] [address] Social History Tobacco Use Types Packs/Day Years Used Date Smoking Tobacco: Never Assessed Comments Unknown Sex and Gender Information Value Date Recorded Sex Assigned at Not on file Legal Sex Female 6:28 AM PRIVATE ADVISOR Gender Identity Not on file Sexual Orientation Not on file documented as of this encounter Plan of Treatment Not on file documented as of this encounter Procedures Procedure Name Priority Date/Time Associated Diagnosis Comments DERMATOPATH TECHNICAL REPORT Routine 03/20/2018 12:00 AM PRIVATE ADVISOR documented in this encounter Results * DERMATOPATH TECHNICAL REPORT (03/20/2018 12:00 AM PRIVATE ADVISOR) Case Report Dermatopathology Report Case: [id number] Authorizing Provider: Marybel Hankins MD Collected: 03/20/2018 12:00 AM Pathologist: Chantel Harvey MD Received: 03/22/2018 06:42 AM Specimen: Skin, right ant salguero 8 6:17 PM PRIVATE ADVISOR DERMATOPATHOLOGY LABORATORY Clinical History BCC. Non-healing. Check margins. 8 6:17 PM [facility] DERMATOPATHOLOGY LABORATORY Gross Description Specimen A: Received is one formalin filled container labeled with the patient's name and designated right ant salguero. The specimen consists of a shave measuring [id number]. The margin is inked green. Jar 0. [facility] Dermatopathology Laboratory performed the technical component only. 6:17 PM [facility] DERMATOPATHOLOGY LABORATORY Embedded Images 6:17 PM [facility] DERMATOPATHOLOGY LABORATORY DISCLAIMER An external and internal positive and negative controls are appropriate for the histochemical, immunohistochemical and immunofluorescence stain(s) in this case (if any), except where stated explicitly. The performance characteristics of the stain(s) cited in this report were developed and its performance characteristic determined by the Dermatopathology Laboratory at [facility]. These tests need not be, and therefore are not, approved by the [place] Food and Drug Administration. The tests are used for clinical purposes. 6:17 PM [facility] DERMATOPATHOLOGY LABORATORY at [address] [facility] Pathology/Cytolog y TISSUE SPECIMEN FROM SKIN / Unknown 03/20/2018 03/22/2018 6:42 AM PRIVATE ADVISOR Marybel Hankins MD LAB - PATHOLOGY/CYTOLOGY OR DERABLES Final Result DERMATOPATHOLOGY LABORATORY [facility] Department of Dermatology [address] [place] [address] 5th Floor Lab [address] [phone] documented in this encounter Visit Diagnoses Not on filedocumented in this encounter Additional Health Concerns Infection Onset Date Last Indicated Resolved Time COVID-19 Under Investigation 12/05/2021 12/05/2021 12/05/2021 8:39 PM CDT COVID-19 Confirmed 12/05/2021 12/05/2021 4:33 AM CDT documented as of this encounter Care Teams Belt Lacer Relationship Specialty Start Date End Date Chris Condon Update Information PCP - General 03/20/18 documented as of this encounter
--- OUTSIDE RECORDS SUMMARY | 2025-02-04 12:02 | XMS_ITS | Clinical Summary ---
Author Organization [facility] Address [address] [place] [address] Care Team Providers Care Scene Painter Name Role Phone Amy Kong MD Primary Care Provider Allergies No known active allergies Medications amoxicillin-cla vulanate (AUGMENTIN) 875-125 MG tablet Take 1 tablet (875 mg total) by mouth 2 (two) times daily. for 7 days 05/21/2024 Active cephALEXin (KEFLEX) 500 MG capsule Take 1 capsule (500 mg total) by mouth 2 (two) times daily. 12/22/2024 Active moxifloxacin (VIGAMOX) 0.5 % ophthalmic solution INSTILL 1 DROP INTO LEFT EYE FOUR TIMES DAILY FOR 1 WEEK. 11/07/2024 Active neomycin-polymy moy-hydrocortis one (CORTISPORIN) 3.5-80390-8 otic suspension SHAKE LIQUID AND INSTILL 2 DROPS TO AFFECTED EAR FOUR TIMES DAILY 05/21/2024 Active ciprofloxacin (CIPRO) 500 MG tablet Take 1 tablet (500 mg total) by mouth 2 (two) times daily. for 5 days 06/18/2024 Active nitrofurantoin, macrocrystal-mo nohydrate, (MACROBID) 100 MG capsule Take 1 capsule (100 mg total) by mouth 2 (two) times daily. 11/26/2024 Active Active Problems Problem Noted Date Diagnosed Date Acute cystitis without hematuria 06/12/2019 Assessment & Plan (06/12/2019 7:54 AM EMPLOYMENT EDUCATIONAL COORD): UA consistent with UTI. Will send culture. Sent in macrobid and told her would call if cx negative or if abx resistant. Otherwise she should complete course and notify us if no improvement History of malignant melanoma 01/12/2016 Lymphadenopathy 01/12/2016 Malignant melanoma of skin ([facility]/HCC [facility]/HCC) Anxiety 09/30/2012 Irritable bowel syndrome 12/04/2011 Resolved Problems Problem Noted Date Diagnosed Date Resolved Date Wears contact lenses 01/09/2018 020 Wears glasses 01/09/2018 01/23/2020 Immunizations Immunization Administration Dates Next Due Dtp 12/28/1989 Hepatitis A (Generic) 12/16/2013,12/16/2013,06/15 Hepatitis B (Generic: Adult) 10/27/2013,04/01/20 12 Hepatitis B Pediatric 12/29/2011 Influenza (Generic) 06/02/2013 Influenza Adult (Generic) 03/04/2014,03/04/2014 MMR 10/01/1992 MMR (Generic) 07/03/2013 Opv 12/28/1989 Tdap (Generic) 06/02/2013 Family History Medical History Relation Comments Diabetes Father Relation Status Comments Father Mother Alive Social History Tobacco Use Types Packs/Day Years Used Date Smoking Tobacco: Never Smokeless Tobacco: Never Alcohol Use Standard Drinks/Week Comments Yes 13.3 (1 standard drink = 0.6 oz pure alcohol) AUDIT-C Answer Date Recorded Frequency of Alcohol Consumption 2-3 times a wee k 10/03/2018 Average Number of Drinks 3 or 4 019 Frequency of Binge Drinking Not on file 09/12 Education Answer Date Recorded What is the highest level of school you have completed or the highest degree you have received? Associate degree: academic program 10/03/2018 Comments No Sex and Gender Information Value Date Recorded Sex Assigned at Not on file Legal Sex Female 4:16 PM CDT Gender Identity Not on file Sexual Orientation Not on file Last Filed Vital Signs Vital Sign Reading Time Taken Comments Blood Pressure 100/64 06/11/2019 2:08 PM EMPLOYMENT EDUCATIONAL COORD Pulse 101 06/11/2019 2:08 PM EMPLOYMENT EDUCATIONAL COORD Temperature 36.8 C (98.3 F) 10/03/2018 7:35 AM CDT Respiratory Rate 18 06/11/2019 2:08 PM EMPLOYMENT EDUCATIONAL [employer]ORD Oxygen Saturation 98% 06/11/2019 2:08 PM EMPLOYMENT EDUCATIONAL COORD Inhaled Oxygen Concentration - - Weight 68 kg (150 lb) 06/11/2019 2:08 PM EMPLOYMENT EDUCATIONAL [employer]ORD Height 167.6 cm (5' 6) 06/11/2019 2:08 PM EMPLOYMENT EDUCATIONAL COORD Body Mass Index 24.21 06/11/2019 2:08 PM EMPLOYMENT EDUCATIONAL COORD Plan of Treatment Health Maintenance Due Date Last Done Comments Cervical Cancer Screening Pa p Smear (Age 30 to 64) Every 3 Years 1984 Annual Physical 09/24/1987 Hepatitis C 2002 HPV Vaccines (1 - 3-dose SCD M series) 09/24/2011 Hepatitis B Vaccines (3 of 3 - 19+ 3-dose series) 12/22/2013 10/27/2013, 04/01/2012, 12/29/2011 Cervical Cancer Screening Pa p with HPV Testing (Age 30 to 64) Every 5 Years 2014 Cervical Cancer Screening wi th HPV 2014 PHQ-2 (Physician [place]) 05/14/2024 Mammogram Screening 2024 COVID-19 Vaccine (3 - 2024-2 6 season) 2025 07/19/2020, 06/28/2020, 06/28/2020 DTaP, Tdap and Td Vaccines ( 3 - Td or Tdap) 09/13/2032 09/13/2022, 06/02/2013, 12/28/1989 Meningococcal B Vaccine Aged Out No l onger eligible based on patient's age to complete this topic Meningococcal Vaccine Aged Out No zay dasia eligible based on patient's age to complete this topic Pneumococcal Vaccine: Pediatrics (0 to 5 Years) and At-Risk Patients (6 to 49 Years) Aged Out No longer eligible b ased on patient's age to complete this topic RSV Immunizations Under 20 Months Aged Out No longer eligible b ased on patient's age to complete this topic Insurance Care Teams Scene Painter Relationship Specialty [place] [id number] [address] PCP - General INTERNAL MEDICINE 12/16/24
--- OUTSIDE RECORDS SUMMARY | 2025-02-04 12:02 | XMS_ITS | Clinical Summary ---
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
--- OUTSIDE RECORDS SUMMARY | 2025-02-04 12:02 | XMS_ITS | Encounter Summary ---
Author Organization [facility] Address [address] [place] [address] Care Team Providers Care Custom Car Builder Name Role Phone Chris Condon Primary Care Provider Unavailabl e Encounter Details Date Type Department Care Team (Late st Contact Info) Description 12/05/2021 Lab Requisition [facility] [address] [place] [phone] Miky Fernandes, COLLEGE TEACHER-[facility] [address] [address] Contact with and (suspected) exposure to other viral communicable diseases Social History Tobacco Use Types Packs/Day Years Used Date Smoking Tobacco: Never Assessed Comments Unknown Sex and Gender Information Value Date Recorded Sex Assigned at Not on file 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 This test has been authorized [...] assay are available upon request. Miky Fernandes COLLEGE TEACHER-BUSINESS UN[employer] DIRECTOR LAB - MICROBIOLOGY ORDLavelle LEONARD Final Result [facility] MICROBIOLOG[facility] [address] [place], [place] [address], [facility] [phone] documented in this encounter Visit Diagnoses Diagnosis Contact with and (suspected) exposure to other viral communicable diseases documented in this encounter Additional Health Concerns Infection Onset Date Last Indicated Resolved Time COVID-19 Under Investigation 12/05/2021 12/05/2021 12/05/2021 8:39 PM CDT COVID-19 Confirmed 12/05/2021 12/05/2021 4:33 AM CDT documented as of this encounter Care Teams Custom Car Builder Relationship Specialty Start Date End Date Chris Condon Update Information PCP - General 03/20/18 documented as of this encounter
--- NOTE | 2025-02-04 13:21 | PC.NURSE ---
Provider May at bedside re-assessing pt.
== END 2025-02-04 14:00 | disposition home or self-care (01) ==
PROVIDERS: Family Medicine; Emergency Provider Nurse Practitioner Family
DX: N30.00 Acute cystitis without hematuria (principal); K76.0 Fatty (change of) liver, not elsewhere classified; K58.1 Irritable bowel syndrome with constipation; Z85.820 Personal history of malignant melanoma of skin
CPT/HCPCS: 36415; 74177; 80053; 81001; 81025; 83690; 85025; 87077; 87086; 87186; 96361; 96374; 99284; J2405; J7030; Q9967